=== PATIENT | female | born 1990 | race Caucasian/White ===

== ENCOUNTER 2017-04-08 14:46 | Observation (INO) | payer MEDICAID, SELFPAY ==
[2017-04-08] VITALS (7 sets, daily range): BP systolic 108–135; BP diastolic 57–75; PULSE 63–79; RESP 16–18; TEMP 36.8; O2SAT 98–99; BMI 24.8
--- NOTE | 2017-04-08 15:54 | PCM.HP.STD ---
Problem List (1) Acute asthma exacerbation Status: Suspected (2) Asthma Status: Chronic (3) Opioid dependence with withdrawal Status: Acute (4) ex-smoker Status: Acute History of Present Illness Date of Admission: 04/08/17 Chief Complaint: Opioid withdrawal symptoms The patient is a 26 year old F history of asthma, last exacerbation about 2 weeks ago which she was admitted in [facility] and quit smoking was brought in through [facility] program for stabilization of opioid withdrawal symptoms. She had last dose of fentanyl 0.1 gram today at 2 AM. She usually is mainly fentanyl through snorting 3 years. She had one time he snort heroin about 3 years ago for which she was admitted. She denies IV use of drugs. She also refuses cocaine, methamphetamine or benzodiazepine. She quit smoking about 3 weeks ago. Currently, she has shivering, tremors, muscle twitching and pain, loose bowel movement. She is not vomiting or abdominal pain. [] Past Medical History Past Medical History (Chronic Problems): Chronic Problems Asthma (Chronic) Allergies azithromycin [From Zithromax] Adverse Reaction (Verified 02/07/17 02:37) Abd cramps/diarrhea Home Medications: Ambulatory Orders Medication Instructions Recorded Albuterol Inhaler [Ventolin Hfa] 1 puff INHALATION Q4H PRN PRN 09/25/13 Cetirizine HCl [Zyrtec] 10 mg PO DAILY PRN 02/07/17 Montelukast [Singulair] 10 mg PO DAILY 02/07/17 Fluticasone Prop 250 mcg [Flovent 1 puff INHALATION BID 04/08/17 Diskus 250 mcg] Salmeterol [Serevent Diskus] 50 mcg IH BID 04/08/17 Surgical History: no surgical history Psychiatric History: No pertinent psych hx MANAGER BUSINESS 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 Denies: Chills, Fever, Weight Change HEENT: Denies: Head Aches, Sinus Congestion, Sinus Drainage Cardiovascular: Denies: Chest Pain, Palpitations Respiratory: Denies: Cough, Shortness of breath at rest, Sputum production Gastrointestinal: Denies: Abdominal Pain, Nausea, Vomiting Genitourinary: Denies: Dysuria Musculoskeletal: Reports: Joint Pain, Muscle pain. Denies: Joint Tenderness Skin: Denies: Rash, Wounds Neurological: Denies: Numbness, Tingling, Focal weakness Psychiatric: Denies: Anxiety, Depression, Homicidal Ideations, Suicidal Ideations Hematologic/ Lymphatic: Denies: Easy Bruising, Easy Bleeding VTE Information - Inpt Only VTE Present on Admission: No VTE Mechan Device Prophylaxis: None VTE Pharm Prophylaxis ordered?: No Reason prophylaxis not ordered:: Procedure Not Indicated - Low risk Patient Problems: Active and Suspected Problems Opioid dependence with withdrawal (Acute) ex-smoker (Acute) - Physical Exam General: Alert, Oriented x3, Cooperative HEENT: Atraumatic, PERRLA, EOMI, Normocephalic Neck: Supple, No JVD, Negative Carotid Bruits Lungs: Clear to auscultation, Normal air movement, No rhonchi, No wheeze, No rales Cardiovascular: Regular rate, Regular Rhythm, Normal S1, Normal S2, No murmurs Abdomen: Bowel Sounds Present, Soft, Non Tender, Non-Distended Extremities: No edema, Capillary Refill Less than 3 Seconds Skin: No rashes, No breakdown Musculoskeletal: No Tenderness to Palpation of Joints or Extremities Neurological: Cranial nerves II-XII grossly intact Psych/Mental Status: Normal Affect, Appropriate Vital Signs Temp Pulse Resp BP Pulse Ox 98.2 F 75 18 126/75 98 04/08/17 15:53 04/08/17 15:53 04/08/17 15:53 04/08/17 15:53 04/08/17 15:53 Oxygen Delivery Method Room Air Weight: 65.635 kg Body Mass Index (BMI) 24.8 Assessment/Plan Active and Suspected Problems Opioid dependence with withdrawal (Acute) ex-smoker (Acute) The patient is a 26 year old F history of asthma, last exacerbation about 2 weeks ago which she was admitted in [facility] and quit smoking was brought in through [facility] program for stabilization of opioid withdrawal symptoms. She had last dose of fentanyl 0.1 gram today at 2 AM. She usually is mainly fentanyl through snorting 3 years. She had one time he snort heroin about 3 years ago for which she was admitted. She denies IV use of drugs. She also refuses cocaine, methamphetamine or benzodiazepine. She quit smoking about 3 weeks ago. Currently, she has shivering, tremors, muscle twitching and pain, loose bowel movement. She is not vomiting or abdominal pain. 1. Medical stabilization of acute opioid withdrawal mainly fentanyl: The patient is being admitted as per the [facility] protocol for medical stabilization of opioids. On the medication regimen as per the order set. Labs and EKG ordered. 2. Moderate intermittent asthma with last exacerbation about 3 weeks ago: Currently, she is not short of breath or wheezing and does not seem to exacerbation. Continue home inhalers Flovent, Salmetrol and albuterol as needed shortness of breath DVT prophylaxis, low risk: does not require prophylaxis
--- NOTE | 2017-04-08 16:04 | HP.PCM_ITS ---
Problem List (1) Acute asthma exacerbation Status: Suspected (2) Asthma Status: Chronic (3) Opioid dependence with withdrawal Status: Acute (4) ex-smoker Status: Acute History of Present Illness Date of Admission: 04/08/17 Chief Complaint: Opioid withdrawal symptoms The patient is a 26 year old F history of asthma, last exacerbation about 2 weeks ago which she was admitted in [place] and quit smoking was brought in through [facility] program for stabilization of opioid withdrawal symptoms. She had last dose of fentanyl 0.1 gram today at 2 AM. She usually is mainly fentanyl through snorting 3 years. She had one time he snort heroin about 3 years ago for which she was admitted. She denies IV use of drugs. She also refuses cocaine, methamphetamine or benzodiazepine. She quit smoking about 3 weeks ago. Currently, she has shivering, tremors, muscle twitching and pain, loose bowel movement. She is not vomiting or abdominal pain. [] Past Medical History Past Medical History (Chronic Problems): Chronic Problems Asthma (Chronic) Allergies azithromycin [From Zithromax] Adverse Reaction (Verified 02/07/17 02:37) Abd cramps/diarrhea Home Medications: Ambulatory Orders Medication Instructions Recorded Albuterol Inhaler [Ventolin Hfa] 1 puff INHALATION Q4H PRN PRN 09/25/13 Cetirizine HCl [Zyrtec] 10 mg PO DAILY PRN 02/07/17 Montelukast [Singulair] 10 mg PO DAILY 02/07/17 Fluticasone Prop 250 mcg [Flovent 1 puff INHALATION BID 04/08/17 Diskus 250 mcg] Salmeterol [Serevent Diskus] 50 mcg IH BID 04/08/17 Surgical History: no surgical history Psychiatric History: No pertinent psych hx 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 Denies: Chills, Fever, Weight Change HEENT: Denies: Head Aches, Sinus Congestion, Sinus Drainage Cardiovascular: Denies: Chest Pain, Palpitations Respiratory: Denies: Cough, Shortness of breath at rest, Sputum production Gastrointestinal: Denies: Abdominal Pain, Nausea, Vomiting Genitourinary: Denies: Dysuria Musculoskeletal: Reports: Joint Pain, Muscle pain. Denies: Joint Tenderness Skin: Denies: Rash, Wounds Neurological: Denies: Numbness, Tingling, Focal weakness Psychiatric: Denies: Anxiety, Depression, Homicidal Ideations, Suicidal Ideations Hematologic/ Lymphatic: Denies: Easy Bruising, Easy Bleeding VTE Information - Inpt Only VTE Present on Admission: No VTE Mechan Device Prophylaxis: None VTE Pharm Prophylaxis ordered?: No Reason prophylaxis not ordered:: Procedure Not Indicated - Low risk Patient Problems: Active and Suspected Problems Opioid dependence with withdrawal (Acute) ex-smoker (Acute) - Physical Exam General: Alert, Oriented x3, Cooperative HEENT: Atraumatic, PERRLA, EOMI, Normocephalic Neck: Supple, No JVD, Negative Carotid Bruits Lungs: Clear to auscultation, Normal air movement, No rhonchi, No wheeze, No rales Cardiovascular: Regular rate, Regular Rhythm, Normal S1, Normal S2, No murmurs Abdomen: Bowel Sounds Present, Soft, Non Tender, Non-Distended Extremities: No edema, Capillary Refill Less than 3 Seconds Skin: No rashes, No breakdown Musculoskeletal: No Tenderness to Palpation of Joints or Extremities Neurological: Cranial nerves II-XII grossly intact Psych/Mental Status: Normal Affect, Appropriate Vital Signs Temp Pulse Resp BP Pulse Ox 98.2 F 75 18 126/75 98 04/08/17 15:53 04/08/17 15:53 04/08/17 15:53 04/08/17 15:53 04/08/17 15:53 Oxygen Delivery Method Room Air Weight: 65.635 kg Body Mass Index (BMI) 24.8 Assessment/Plan Active and Suspected Problems Opioid dependence with withdrawal (Acute) ex-smoker (Acute) The patient is a 26 year old F history of asthma, last exacerbation about 2 weeks ago which she was admitted in [place] and quit smoking was brought in through [facility] program for stabilization of opioid withdrawal symptoms. She had last dose of fentanyl 0.1 gram today at 2 AM. She usually is mainly fentanyl through snorting 3 years. She had one time he snort heroin about 3 years ago for which she was admitted. She denies IV use of drugs. She also refuses cocaine, methamphetamine or benzodiazepine. She quit smoking about 3 weeks ago. Currently, she has shivering, tremors, muscle twitching and pain, loose bowel movement. She is not vomiting or abdominal pain. 1. Medical stabilization of acute opioid withdrawal mainly fentanyl: The patient is being admitted as per the [facility] protocol for medical stabilization of opioids. On the medication regimen as per the order set. Labs and EKG ordered. 2. Moderate intermittent asthma with last exacerbation about 3 weeks ago: Currently, she is not short of breath or wheezing and does not seem to exacerbation. Continue home inhalers Flovent, Salmetrol and albuterol as needed shortness of breath DVT prophylaxis, low risk: does not require prophylaxis
[2017-04-08 16:50] LABS: Absolute Lymphocyte Count 0.99 X10^3/ul (0.83-4.51); Absolute Neutrophil Count 4.2 X10^3/uL (2.0-7.7); Basophil# 0.04 X10^3/uL; Basophil% 0.6 % (0-1); Eosinophil# 0.59 X10^3/uL; Eosinophils% 9.4 % (0-5); Hematocrit 36.8 % (37-47); Hemoglobin 12.7 g/dl (12.0-15.0); Lymphocyte # 0.99 X10^3/ul (4.0); Lymphocyte % 15.7 % (19-41); Mean Corp Hgb Conc 34.5 g/gl (32-36); Mean Corpuscular Hgb 30.5 pg (27.0-32.0); Mean Corpuscular Volume 88.5 fL (81-99); Mean Platelet Vol. 9.8 fl (6.2-12.0); Monocyte# 0.44 X10^3/uL; Neutrophil # 4.23 X10^3/uL (2.7-7.7); Neutrophil % 67.3 % (47-70); POSITIVE COUNT NO; POSITIVE DIFFERENTIAL NO; POSITIVE MORPHOLOGY NO; Platelet Count 296 K/mm3 (150-450); RBC Distribution Width CV 13.1 % (11.6-14.6); RBC Distribution Width SD 39.8 fl (35.1-43.9); Red Blood Count 4.16 M/mm3 (4.2-5.4); White Blood Count 6.3 K/mm3 (4.4-11.0)
[2017-04-08] MEDS: Buprenorphine HCl 2 MG TAB.SUBL SL (16:52)
[2017-04-08] MEDS: chlordiazePOXIDE 25 MG Capsule PO ×2 (16:52→22:00)
[2017-04-08] MEDS: cloNIDine HCl 0.1 MG Tablet 0.2 MG PO (16:53)
[2017-04-08 16:56] LABS: International Normalized Ratio 1.1; Prothrombin Time (Protime)PT. 13.3 SECONDS (11.7-14.9)
[2017-04-08] MEDS: Ibuprofen 400 MG Tablet 800 MG PO (16:59)
[2017-04-08] MEDS: Ondansetron ODT 4 MG Tablet PO ×2 (16:59→23:01)
[2017-04-08] MEDS: Methocarbamol 750 MG Tablet PO ×2 (16:59→23:01)
[2017-04-08 17:05] LABS: ALB/GLOB Ratio 1.2 RATIO (0.9-2.4); AST(SGOT) 7 U/L (15-37); Alanine Aminotransfer ALT/SGPT 8 U/L (12-78); Albumin, Serum 3.7 g/dL (3.4-5.0); Alkaline Phosphatase 52 U/L (45-117); Amylase 35 U/L (25-115); Anion Gap 8 (5-15); BUN 6 mg/dL (7-18); BUN/Creat Ratio 9.9 RATIO (10-20); Calcium,Total 8.5 mg/dL (8.5-10.1); Chloride 108 mmol/L (98-107); EST Glomerular Filtration Rate 127 mL/min (>60); Est Glom Filt Rate - Afr Amer 153 mL/min (>60); Glucose 93 mg/dL (70-110); Lipase 114 U/L (73-393); Potassium 3.6 mmol/L (3.5-5.1); Protein, Total 6.7 g/dL (6.4-8.2); Sodium Level 143 mmol/L (136-145)
[2017-04-08 17:10] LABS: Alcohol, Blood (Medical)-Serum < 3.0 mg/dL
[2017-04-08 17:33] LABS: Pregnancy, Serum, hCG Quali. NEGATIVE Negative (0-9 Nonpreg)
[2017-04-08 18:00] LABS: Amphetamine Urine VISTA NEGATIVE (<1000 ng/mL); Barbiturate Urine VISTA POSITIVE (< 200 ng/mL); Benzodiazepine Urine VISTA NEGATIVE (< 200 ng/mL); Cocaine Urine VISTA NEGATIVE (< 300 ng/mL); Ecstacy Urine VISTA NEGATIVE (< 500 ng/mL); Methadone Urine VISTA NEGATIVE (< 300 ng/mL); PCP Urine VISTA NEGATIVE (< 25 ng/mL); THC Urine VISTA NEGATIVE (< 50 ng/mL); Vista UDS pH Range 6
[2017-04-08 21:09] LABS: Bacteria 0 SEEN /hpf (None Seen); Mucous, Urine 0 SEEN /hpf (<or=2+); Red Blood Cells-Urine 0 SEEN /hpf (0-5); White Blood Cells 0 SEEN /hpf (0-5)
[2017-04-08 21:11] LABS: Color, Urine Yellow (Yellow); Glucose, Dipstick Normal (Normal); Ketone-Dipstick Negative (Negative); Leukocyte Esterase-Dipstick Negative /ul (Negative); Nitrite-Dipstick Negative (Negative); Occult Blood-Urine Negative /ul (Negative); Protein-Dipstick Negative (Negative); Urine Bilirubin Dipstick Negative (Negative); Urine Clarity Sl. Cloudy (Clear); Urine Urobilinogen Normal (Normal)
[2017-04-08 21:17] LABS: Amorphous Sediment 1+ PHOS; Squamous Epithelial Cells - UA 5-10 SEEN /hpf (5-10)
[2017-04-08] MEDS: traZODone 50 MG Tablet PO (22:06)
[2017-04-08] MEDS: Carbidopa/Levodopa 25/100 Tablet PO (22:06)
[2017-04-08] MEDS: Acetaminophen 325 MG Tablet 650 MG PO (22:06)
[2017-04-08] MEDS: Dicyclomine 10 MG Capsule 20 MG PO (22:06)
[2017-04-08] MEDS: QUEtiapine 25 MG Tablet PO (22:06)
[2017-04-08] MEDS: Albuterol 2.5 MG/3 ML VIAL.NEB. INHALATION (22:10)
[2017-04-09] VITALS (10 sets, daily range): BP systolic 91–112; BP diastolic 42–60; PULSE 66–88; RESP 16–18; TEMP 36.4–37.2; O2SAT 97–100
[2017-04-09] MEDS: Buprenorphine HCl 2 MG TAB.SUBL SL ×3 (00:53→17:50)
[2017-04-09] MEDS: Ibuprofen 400 MG Tablet 800 MG PO ×2 (00:56→21:35)
[2017-04-09] MEDS: chlordiazePOXIDE 25 MG Capsule PO ×5 (02:05→21:36)
[2017-04-09] MEDS: Ondansetron ODT 4 MG Tablet PO ×3 (05:41→21:35)
[2017-04-09] MEDS: Methocarbamol 750 MG Tablet PO ×3 (05:41→17:51)
[2017-04-09] MEDS: QUEtiapine 25 MG Tablet PO (05:41)
--- NOTE | 2017-04-09 07:14 | PCM.PN.HOSP ---
Patient Problems: Active and Suspected Problems Opioid dependence with withdrawal (Acute) ex-smoker (Acute) Subjective: Patient with no acute events overnight per self and per nursing report. She states withdrawal symptoms have markedly improved and she slept well. We will to having hepatitis and HIV panel obtained. Patient denies fevers, chills, nausea, emesis, abdominal pain, chest pain or dyspnea. Objective: Physical Examination: General: awake, alert, oriented x 3 and cooperative, seated upright in bed in no apparent distress. Skin: normal color, turgor, no icterus, cyanosis. HEENT: AT/NC, EOMI, PERRLA, MMM. Lungs: CTA bilaterally, moderate effort, mild decrease BL bases, no rales, ronchi or wheezing. Heart: Regular rate and rhythm; no gallop, rub audible. Abdomen: soft, NTTP, ND, normal BS. Extremities: no cyanosis, clubbing, or edema. Neurological: patient awake, alert, oriented x 3; cognitive function intact; pupils equally reactive to light and accomodation; cranial nerves II-XII grossly normal, moving all 4 extremities, no focal deficits, strength mildly globally decreased. Psychiatric: affect appears normal, no acute evidence of depressive or anxiety feelings. Vitals/I&O's: Vital Signs Temp Pulse Resp BP Pulse Ox 98.6 F 73 18 101/48 99 04/09/17 05:35 04/09/17 05:35 04/09/17 05:35 04/09/17 05:35 04/08/17 22:10 Oxygen Delivery Method Room Air Weight: 144 lb 11.2 oz Body Mass Index (BMI) 24.8 Intake and Output for Last 24 Hours 04/07/17 04/08/17 04/09/17 23:59 23:59 23:59 Intake Total 820 Balance 820 Laboratory Results 04/08/17 16:37: WBC 6.3, RBC 4.16 L, Hgb 12.7, Hct 36.8 L, MCV 88.5, MCH 30.5, MCHC 34.5, RDW 13.1, RDW Differential 39.8, Plt Count 296, MPV 9.8, Immature Gran % (Auto) 0.000, Neut % (Auto) 67.3, Lymph % (Auto) 15.7 L, [place] % (Auto) 7.0, Eos % (Auto) 9.4 H, Baso % (Auto) 0.6, Absolute Neuts (auto) 4.2, Absolute Lymphs (auto) 0.99, Total Counted Not Reportable 04/08/17 16:37: PT 13.3, INR 1.1 04/08/17 16:37: Sodium 143, Potassium 3.6, Chloride 108 H, Carbon Dioxide 27.0, Anion Gap 8, BUN 6 L, Creatinine 0.60, Estim Creat Clear Calc 122.70, Est GFR (MDRD) Af Amer 153, Est GFR (MDRD) Non-Af 127, BUN/Creatinine Ratio 9.9 L, Glucose 93, Calcium 8.5, Total Bilirubin 0.30, AST 7 L, ALT 8 L, Alkaline Phosphatase 52, Total Protein 6.7, Albumin 3.7, Globulin 3.0, Albumin/Globulin Ratio 1.2, Amylase 35, Lipase 114 04/08/17 16:37: Ethyl Alcohol < 3.0 04/08/17 16:37: Serum , Qual NEGATIVE 04/08/17 17:10: Urine Opiates Screen POSITIVE H, Urine Methadone Screen NEGATIVE, Ur Barbiturates Screen POSITIVE H, Ur Phencyclidine Scrn NEGATIVE, Ur Amphetamines Screen NEGATIVE, U Methamphetamin-MDMA NEGATIVE, U Benzodiazepines Scrn NEGATIVE, Urine Cocaine Screen NEGATIVE, U Cannabinoids Screen NEGATIVE, Ur Drug Screen Comment 04/08/17 17:10: Urine Color Yellow, Urine Clarity Sl. Cloudy, Urine pH 8.0, Ur Specific [place] 1.010, Urine Protein Negative, Urine Glucose (UA) Normal, Urine Ketones Negative, Urine Occult Blood Negative, Urine Nitrite Negative, Urine Bilirubin Negative, Urine Urobilinogen Normal, Ur Leukocyte Esterase Negative, Urine RBC 0 SEEN, Urine WBC 0 SEEN, Ur Squamous Epith Cells 5-10 SEEN, Amorphous Sediment 1+ PHOS, Urine Bacteria 0 SEEN, Urine Mucus 0 SEEN Current Medications Acetaminophen (Tylenol) 650 mg PO Q4H PRN PRN PRN Reason: Temp>99.1F Last Admin: 04/08/17 22:06 Dose: 650 mg Al Hydroxide/Mg Hydroxide (Mylanta Ii) 30 ml PO Q6H PRN PRN PRN Reason: dyspesia Albuterol Sulfate (Ventolin Aerosols) 2.5 mg INHALATION Q4H PRN PRN Reason: Wheezing Last Admin: 04/08/17 22:10 Dose: 2.5 mg Albuterol Sulfate (Ventolin Aerosols) 2.5 mg INHALATION Q6HWA.RT [facility] Last Admin: 04/08/17 19:10 Dose: Not Given Bisacodyl (Dulcolax) 10 mg RECTAL DAILY PRN PRN Reason: Constipation Budesonide (Pulmicort Aerosol) 0.5 mg INHALATION Q12H.RT [facility] Last Admin: 04/08/17 19:10 Dose: Not Given Buprenorphine HCl (Buprenorphine Hcl) 4 mg SL Q8H BRENDAN PRN Reason: Taper Stop: 04/11/17 20:44 Last Admin: 04/09/17 00:53 Dose: 4 mg Carbidopa/Levodopa (Sinemet) 1 tablet PO Q8H PRN PRN PRN Reason: RESTLESSNESS Last Admin: 04/08/17 22:06 Dose: 1 tablet Chlordiazepoxide (Librium) 25 mg PO Q6H PRN PRN PRN Reason: Mod-Sev Anxiety (score 2-3/3) Chlordiazepoxide (Librium) 25 mg PO Q4 [facility] Stop: 04/09/17 14:01 Last Admin: 04/09/17 05:36 Dose: 25 mg Clonidine (Catapres) 0.1 mg PO Q2H PRN PRN Reason: Hot/Cold Sweats or Anxiety Dicyclomine HCl (Bentyl) 20 mg PO Q6H PRN PRN PRN Reason: Abdomnial Discomfort Last Admin: 04/08/17 22:06 Dose: 20 mg Folic Acid (Folic Acid) 1 mg PO DAILY@0800 [facility] Hydroxyzine Pamoate (Vistaril) 50 mg PO Q6H PRN PRN PRN Reason: Mild Anxiety (score 1/3) Last Admin: 04/09/17 00:56 Dose: 50 mg Ibuprofen (Motrin) 800 mg PO Q8H PRN PRN PRN Reason: Mild-Moderate Pain (1-5/10) Last Admin: 04/09/17 00:56 Dose: 800 mg Influenza Virus Vaccine Quadrival (Fluarix/Fluzone) 0.5 ml IM .ONCE ONE Stop: 04/09/17 10:01 Loperamide HCl (Imodium) 2 - 4 mg PO UD PRN PRN Reason: LOOSE STOOLS Methocarbamol (Methocarbamol) 750 mg PO 4X/DAY PRN PRN Reason: Muscle Aches Last Admin: 04/09/17 05:41 Dose: 750 mg Montelukast Sodium (Singulair) 10 mg PO DAILY [facility] Multivitamins/Minerals ([facility]ivitamin With Minerals) [facility] Nicotine (Nicoderm Cq (Pbkc)) 21 mg TRANSDERM. DAILY [facility] Ondansetron HCl (Zofran Odt) 4 mg PO Q6H PRN PRN PRN Reason: NAUSEA Last Admin: 04/09/17 05:41 Dose: 4 mg Quetiapine Fumarate (Seroquel) 25 mg PO Q6H PRN PRN PRN Reason: Moderate Anxiety (score 2/3) Last Admin: 04/09/17 05:41 Dose: 25 mg Senna (Senokot) 1 tablet PO QHS PRN PRN Reason: Constipation Thiamine HCl ([facility]itamin B1) [facility] Trazodone HCl (Desyrel) 50 mg PO QHS [facility] Last Admin: 04/08/17 22:06 Dose: 50 mg Assessment/Plan Active and Suspected Problems Opioid dependence with withdrawal (Acute) ex-smoker (Acute) The patient is a 26 y/o F w/ PMHx: Tobacco use (Q 3 weeks prior), Asthma, History of Fentanyl abuse w/ noted history of snorting fentanyl in addition to heroine snorting in the past (3 years prior) with denial of IVDA who presents to the [facility] on 04/08/17 w/ noted opiate withdrawal onset starting late morning following last dose 0.1 gm 2 am on day of presentation with abdominal pain/cramping, generalized body aches and pains, rhinorrhea, piloerection, fatigue, restless leg, sweating, yawning. (1) Acute Opiate Withdrawal: Admitted to [facility], routine labs obtained, negative , UDS w/ + opitates, + barbiturates, EtOH unremarkable. Initiated and continued on [facility] protocol with tapering course of Subutex, as needed Seroquel, Librium, Sinemet, Catapres, Bentyl, Vistaril, IV fluids, IV antiemetics, Tylenol as needed for pain. Once patient clinically improved and completion of taper nearing will plan [facility] assistance for transition to next level of rehabilitation care. (2) Polysubstance Abuse, Denied IVDA: Given ongoing polysubstance abuse despite denial of IVDA, likely not making excellent safety choices, thus will obtain hepatitis panel and HIV. If positive for hepatitis C, would not be current treatment candidate until clean, sober x 6 months, documented attendance NA or AA meetings, counseling and ongoing negative drug screens. (3) Tobacco Abuse: Encouraged continued cessation, inpatient consultation per RT, NR if desired. (4) Asthma: Encourage continued tobacco cessation, HOB, IS, albuterol PRN, budesonide. (5) DVT Prophylaxis: CATHY, low risk, ambulation.
[2017-04-09] MEDS: Folic Acid 1 MG Tablet PO (08:50)
[2017-04-09] MEDS: Multivitamins,Ther W-Minerals Tablet 1 TABLET PO (08:50)
[2017-04-09] MEDS: Thiamine Hydrochloride 100 MG Tablet PO (08:50)
[2017-04-09] MEDS: Carbidopa/Levodopa 25/100 Tablet PO ×2 (08:57→17:50)
[2017-04-09] MEDS: Montelukast 10 MG Tablet PO (10:11)
[2017-04-09] MEDS: Albuterol 2.5 MG/3 ML VIAL.NEB. INHALATION (19:16)
[2017-04-09] MEDS: Budesonide Respules 0.5 MG/2 ML AMPUL.NEB. INHALATION (19:17)
[2017-04-09] MEDS: traZODone 50 MG Tablet PO (21:30)
[2017-04-10] VITALS (7 sets, daily range): BP systolic 94–107; BP diastolic 50–58; PULSE 69–81; RESP 14–18; TEMP 36.8–37.1; O2SAT 99–100
[2017-04-10] MEDS: QUEtiapine 25 MG Tablet PO ×2 (00:33→21:04)
[2017-04-10] MEDS: Methocarbamol 750 MG Tablet PO ×3 (00:33→18:22)
[2017-04-10] MEDS: Buprenorphine HCl 2 MG TAB.SUBL SL ×3 (00:33→21:04)
[2017-04-10 04:16] LABS: HEPATITIS B SURFACE AG Negative (Negative); Hepatitis A AB, Total Negative (Negative); Hepatitis A IgM Antibody Negative (Negative); Hepatitis B Core AB IgM Negative (Negative); Hepatitis B Core Ab Total Negative (Negative); Hepatitis C Ab 0.1 s/co ratio (0.0-0.9)
[2017-04-10] MEDS: chlordiazePOXIDE 25 MG Capsule PO ×3 (04:59→18:22)
--- NOTE | 2017-04-10 07:42 | PCM.PN.HOSP ---
Patient Problems: Active and Suspected Problems Opioid dependence with withdrawal (Acute) ex-smoker (Acute) Subjective: Patient with no acute events overnight per self and per nursing report. She notes she slept well and her withdrawal symptoms are completely controlled and at this time she states resolved. Patient denies fevers, chills, nausea, emesis, abdominal pain, chest pain or dyspnea. Objective: Physical Examination: General: awake, alert, oriented x 3 and cooperative, seated upright in bed, just waking up and fatigued appearance. Skin: normal color, turgor, no icterus, cyanosis. HEENT: AT/NC, EOMI, PERRLA, MMM. Lungs: CTA bilaterally, moderate effort, occasional soft anterior inspiratory wheeze, minimal, no rales, ronchi. Heart: Regular rate and rhythm; no gallop, rub audible. Abdomen: soft, NTTP, ND, normal BS. Extremities: no cyanosis, clubbing, or edema. Neurological: patient awake, alert, oriented x 3; cognitive function intact; pupils equally reactive to light and accomodation; cranial nerves II-XII grossly normal, moving all 4 extremities, no focal deficits, strength preserved. Psychiatric: affect appears normal, no acute evidence of depressive or anxiety feelings. Vitals/I&O's: Vital Signs Temp Pulse Resp BP Pulse Ox 98.5 F 74 18 106/50 100 04/10/17 04:55 04/10/17 04:55 04/10/17 04:55 04/10/17 04:55 04/09/17 21:36 Oxygen Delivery Method Room Air Weight: 144 lb 11.2 oz Body Mass Index (BMI) 24.8 Intake and Output for Last 24 Hours 04/08/17 04/09/17 04/10/17 23:59 23:59 23:59 Intake Total 1300 960 Balance 1300 960 Laboratory Results 04/09/17 08:48: Hepatitis A IgM Ab Pending, Hepatitis A Ab Total Pending, Hep Bs Antigen Pending, Hep B Core Total Ab Pending, Hep B Core IgM Ab Pending, Hepatitis C Comment Pending, HIV 1&2 Ag/Ab, 4th Gen Pending Current Medications Acetaminophen (Tylenol) 650 mg PO Q4H PRN PRN PRN Reason: Temp>99.1F Last Admin: 04/08/17 22:06 Dose: 650 mg Al Hydroxide/Mg Hydroxide (Mylanta Ii) 30 ml PO Q6H PRN PRN PRN Reason: dyspesia Albuterol Sulfate (Ventolin Aerosols) 2.5 mg INHALATION Q4H PRN PRN Reason: Wheezing Last Admin: 04/08/17 22:10 Dose: 2.5 mg Albuterol Sulfate (Ventolin Aerosols) 2.5 mg INHALATION Q6HWA.RT [facility] Last Admin: 04/09/17 19:16 Dose: 2.5 mg Bisacodyl (Dulcolax) 10 mg RECTAL DAILY PRN PRN Reason: Constipation Budesonide (Pulmicort Aerosol) 0.5 mg INHALATION Q12H.RT [facility] Last Admin: 04/09/17 19:17 Dose: 0.5 mg Buprenorphine HCl (Buprenorphine Hcl) 2 mg SL Q8H BRENDAN PRN Reason: Taper Stop: 04/11/17 20:44 Last Admin: 04/10/17 00:33 Dose: 2 mg Carbidopa/Levodopa (Sinemet) 1 tablet PO Q8H PRN PRN PRN Reason: RESTLESSNESS Last Admin: 04/09/17 17:50 Dose: 1 tablet Chlordiazepoxide (Librium) 25 mg PO Q6H PRN PRN PRN Reason: Mod-Sev Anxiety (score 2-3/3) Last Admin: 04/10/17 04:59 Dose: 25 mg Clonidine (Catapres) 0.1 mg PO Q2H PRN PRN Reason: Hot/Cold Sweats or Anxiety Dicyclomine HCl (Bentyl) 20 mg PO Q6H PRN PRN PRN Reason: Abdomnial Discomfort Last Admin: 04/08/17 22:06 Dose: 20 mg Folic Acid (Folic Acid) 1 mg PO DAILY@0800 [facility] Last Admin: 04/09/17 08:50 Dose: 1 mg Hydroxyzine Pamoate (Vistaril) 50 mg PO Q6H PRN PRN PRN Reason: Mild Anxiety (score 1/3) Last Admin: 04/09/17 13:33 Dose: 50 mg Ibuprofen (Motrin) 800 mg PO Q8H PRN PRN PRN Reason: Mild-Moderate Pain (1-5/10) Last Admin: 04/09/17 21:35 Dose: 800 mg Loperamide HCl (Imodium) 2 - 4 mg PO UD PRN PRN Reason: LOOSE STOOLS Methocarbamol (Methocarbamol) 750 mg PO 4X/DAY PRN PRN Reason: Muscle Aches Last Admin: 04/10/17 00:33 Dose: 750 mg Montelukast Sodium (Singulair) 10 mg PO DAILY [facility] Last Admin: 04/09/17 10:11 Dose: 10 mg Multivitamins/Minerals ([facility] With Minerals) [facility] Last Admin: 04/09/17 08:50 Dose: 1 tablet Nicotine (Nicoderm Cq (Pbkc)) 21 mg TRANSDERM. DAILY [facility] Last Admin: 04/09/17 10:16 Dose: Not Given Ondansetron HCl (Zofran Odt) 4 mg PO Q6H PRN PRN PRN Reason: NAUSEA Last Admin: 04/09/17 21:35 Dose: 4 mg Quetiapine Fumarate (Seroquel) 25 mg PO Q6H PRN PRN PRN Reason: Moderate Anxiety (score 2/3) Last Admin: 04/10/17 00:33 Dose: 25 mg Senna (Senokot) 1 tablet PO QHS PRN PRN Reason: Constipation Thiamine [facility]amin B1) [facility] Last Admin: 04/09/17 08:50 Dose: 100 mg Trazodone HCl (Desyrel) 50 mg PO QHS [facility] Last Admin: 04/09/17 21:30 Dose: 50 mg Assessment/Plan Active and Suspected Problems Opioid dependence with withdrawal (Acute) ex-smoker (Acute) The patient is a 26 y/o F w/ PMHx: Tobacco use (Q 3 weeks prior), Asthma, History of Fentanyl abuse w/ noted history of snorting fentanyl in addition to heroine snorting in the past (3 years prior) with denial of IVDA who presents to the [facility] on 04/08/17 w/ noted opiate withdrawal onset starting late morning following last dose 0.1 gm 2 am on day of presentation with abdominal pain/cramping, generalized body aches and pains, rhinorrhea, piloerection, fatigue, restless leg, sweating, yawning. (1) Acute Opiate Withdrawal: Admitted to [place], routine labs obtained, negative , UDS w/ + opitates, + barbiturates, EtOH unremarkable. Initiated and continued on [facility] service protocol with tapering course of Subutex, as needed Seroquel, Librium, Sinemet, Catapres, Bentyl, Vistaril, IV fluids, IV antiemetics, Tylenol as needed for pain. Once patient clinically improved and completion of taper nearing will plan [facility] assistance for transition to next level of rehabilitation care. Plan for discharge to 04/11/17 following last tapering dosage. (2) Polysubstance Abuse, Denied IVDA: Given ongoing polysubstance abuse despite denial of IVDA, likely not making excellent safety choices, thus will obtain hepatitis panel and HIV. If positive for hepatitis C, would not be current treatment candidate until clean, sober x 6 months, documented attendance NA or AA meetings, counseling and ongoing negative drug screens. (3) Tobacco Abuse: Encouraged continued cessation, inpatient consultation per RT, NR if desired. (4) Asthma: Encourage continued tobacco cessation, HOB, IS, albuterol PRN, budesonide. Once discharged will encourage continued fluticasone, salmeterol. (5) DVT Prophylaxis: CATHY, low risk, ambulation.
[2017-04-10] MEDS: Ondansetron ODT 4 MG Tablet PO ×2 (07:50→16:24)
[2017-04-10] MEDS: Folic Acid 1 MG Tablet PO (07:50)
[2017-04-10] MEDS: Thiamine Hydrochloride 100 MG Tablet PO (07:50)
[2017-04-10] MEDS: Carbidopa/Levodopa 25/100 Tablet PO ×2 (07:50→16:20)
[2017-04-10] MEDS: Multivitamins,Ther W-Minerals Tablet 1 TABLET PO (07:50)
[2017-04-10] MEDS: Montelukast 10 MG Tablet PO (08:43)
--- NOTE | 2017-04-10 14:44 | CHAPLAIN ---
Type of Pastoral Visit _x__ Initial Visit ___ Follow-up Visit ___ On-call Visit ___ General Patient Visit ___ Spiritual Assessment ___ Family Conference ___ Bereavement ___ Rapid Response ___ Code Blue ___ Other (describe below) Pastoral Care Referral From _x__ Patient ___ Family ___ Nurse ___ Physician ___ Snowmobile Mechanic ___ Flume Tender ___ Other (describe below) Sacrament/Intervention _x__ Active listening ___ Anointing ___ Worship ___ Bereavement ___ Communion _x__ Little exploration ___ _x__ Life review _x__ Prayer ___ Reconciliation ___ Sacrament of Sick _x__ Supportive presence ___ Wedding ___ Other (describe below) Pastoral Comments introduced self and role to patient and pt welcomed me into room to talk; father of pt was in and out of the room and this coil former had opportunity to listen to him and be supportive as well; pt gives life story and her desire to out of the cycle of addiction; pt has attended a [facility] in [place] that she has found helpful to her and she hopes to return there when she [facility]
[2017-04-10 15:21] LABS: Hep B Surface Antibodies Non Reactive (.)
[2017-04-10 15:22] LABS: HIV 1/0/2 SCREEN 4TH GEN Non Reactive (Non Reactive)
[2017-04-10] MEDS: Budesonide Respules 0.5 MG/2 ML AMPUL.NEB. INHALATION (19:14)
[2017-04-10] MEDS: traZODone 50 MG Tablet PO (21:04)
[2017-04-11] MEDS: QUEtiapine 25 MG Tablet PO (06:30)
[2017-04-11] MEDS: chlordiazePOXIDE 25 MG Capsule PO (06:30)
[2017-04-11] MEDS: Methocarbamol 750 MG Tablet PO (06:30)
[2017-04-11] MEDS: Carbidopa/Levodopa 25/100 Tablet PO (06:30)
[2017-04-11 06:40] VITALS: BP 104/63; PULSE 74; RESP 16; TEMP 36.6
--- NOTE | 2017-04-11 07:04 | PCM.DC.SUM ---
Discharge Date and Diagnosis - Problem List Patient Problems: Active and Suspected Problems Opioid dependence with withdrawal (Acute) ex-smoker (Acute) Date of Admission: 04/08/17 Date of Discharge: 04/11/17 - Primary Discharge Diagnosis Active and Suspected Problems (1) Acute Opiate Withdrawal (2) Polysubstance Abuse, Denied IVDA (04/09/17 HIV and Hepatitis panel negative) (3) Tobacco Abuse (4) Asthma - Secondary Discharge Diagnosis Chronic Problems Asthma (Chronic) Hospital Course and Treatment Operations: None Procedures: None Summary of Care Provided: snorting in the past (3 years prior) with denial of IVDA who presented to the [facility] at [facility] on 04/08/17 w/ noted opiate withdrawal onset starting late morning following last dose 0.1 gm 2 am on day of presentation with abdominal pain/cramping, generalized body aches and pains, rhinorrhea, piloerection, fatigue, restless leg, sweating, yawning. Admitted to [place], routine labs obtained, negative , UDS w/ + opitates, + barbiturates, EtOH unremarkable. Initiated and continued on [facility] service protocol with tapering course of Subutex, as needed Seroquel, Librium, Sinemet, Catapres, Bentyl, Vistaril, IV fluids, IV antiemetics, Tylenol as needed for pain. Once patient clinically improved and completion of taper nearing transitioned w/ [facility] assistance to next level of rehabilitation care. Given ongoing polysubstance abuse despite denial of IVDA, hepatitis C and HIV obtained which were negative. Encouraged cigarette tobacco continued cessation w/ nicotine rx in case. Maintained on albuterol PRN, budesonide for her Asthma and transitioned back to her home regimen upon discharge. DAY OF DISCHARGE PROGRESS NOTE: Subjective: Patient without acute event overnight per self and nursing report. Symptoms completely resolved. Patient denies fever, chills, nausea, emesis, abdominal pain, chest pain or dyspnea. Patient agreeable to discharge to home w/ [facility] plan in place. Patient will be discharged with follow-up with primary care physician within 3-5 days. Objective: VS: T 98.7, heart rate 75, BP 105/50, respiratory rate 18, 100% on RA. Physical Examination: General: awake, alert, oriented x 3 and cooperative, seated upright in the bed, NAD. Skin: normal color, turgor, no icterus, cyanosis. HEENT: AT/NC, EOMI, PERRLA, MMM. Lungs: CTA bilaterally, moderate effort, mild decrease BL bases, no rales, ronchi or wheezing; Heart: Regular rate and rhythm; no gallop, rub audible. Abdomen: soft, NTTP, ND, normal BS. Extremities: no cyanosis, clubbing, or edema. Neurological: patient awake, alert, oriented x 3; cognitive function appears intact upon questioning,; pupils equally reactive to light and accomodation; cranial nerves II-XII grossly normal, moving all 4 extremities, strength appropriate. Psychiatric: affect appears normal, no acute evidence of depressive or anxiety feelings. Assessment and Plan: Please see hospital summary above. Home Medications: Medications to take at Discharge Albuterol Inhaler [Ventolin Hfa] 1 puff INHALATION Q4H PRN PRN 09/25/13 Cetirizine HCl [Zyrtec] 10 mg PO DAILY PRN 02/07/17 Montelukast [Singulair] 10 mg PO DAILY 02/07/17 Fluticasone Prop 250 mcg [Flovent Diskus 250 mcg] 1 puff INHALATION BID 04/08/17 Salmeterol [Serevent Diskus] 50 mcg IH BID 04/08/17 Nicotine [Nicoderm Cq] 21 mg TRANSDERM. DAILY #14 patch 04/11/17 Following Prescrptions Were Given to Patient: Nicotine [Nicoderm Cq] 21 mg TRANSDERM. DAILY #14 patch Primary Care Physician: Dylan Reeves DO [Primary Care Provider] - Disposition: Home Minutes spent on discharge:: 35 Patient Condition:: Fair Meaningful Use Info Meaningful Use Diagnoses (Choose all that apply): None applicable
--- NOTE | 2017-04-11 07:07 | DS.PCM_ITS ---
Discharge Date and Diagnosis - Problem List Patient Problems: Active and Suspected Problems Opioid dependence with withdrawal (Acute) ex-smoker (Acute) Date of Admission: 04/08/17 Date of Discharge: 04/11/17 - Primary Discharge Diagnosis Active and Suspected Problems (1) Acute Opiate Withdrawal (2) Polysubstance Abuse, Denied IVDA (04/09/17 HIV and Hepatitis panel negative) (3) Tobacco Abuse (4) Asthma - Secondary Discharge Diagnosis Chronic Problems Asthma (Chronic) Hospital Course and Treatment Operations: None Procedures: None Summary of Care Provided: snorting in the past (3 years prior) with denial of IVDA who presented to the [facility] at [facility] on 04/08/17 w/ noted opiate withdrawal onset starting late morning following last dose 0.1 gm 2 am on day of presentation with abdominal pain/cramping, generalized body aches and pains, rhinorrhea, piloerection, fatigue, restless leg, sweating, yawning. Admitted to [place], routine labs obtained, negative , UDS w/ + opitates, + barbiturates, EtOH unremarkable. Initiated and continued on [facility] service protocol with tapering course of Subutex, as needed Seroquel, Librium, Sinemet, Catapres, Bentyl, Vistaril, IV fluids, IV antiemetics, Tylenol as needed for pain. Once patient clinically improved and completion of taper nearing transitioned w/ [facility] assistance to next level of rehabilitation care. Given ongoing polysubstance abuse despite denial of IVDA, hepatitis C and HIV obtained which were negative. Encouraged cigarette tobacco continued cessation w/ nicotine rx in case. Maintained on albuterol PRN, budesonide for her Asthma and transitioned back to her home regimen upon discharge. DAY OF DISCHARGE PROGRESS NOTE: Subjective: Patient without acute event overnight per self and nursing report. Symptoms completely resolved. Patient denies fever, chills, nausea, emesis, abdominal pain, chest pain or dyspnea. Patient agreeable to discharge to home w / [facility] plan in place. Patient will be discharged with follow-up with primary care physician within 3-5 days. Objective: VS: T 98.7, heart rate 75, BP 105/50, respiratory rate 18, 100% on RA. Physical Examination: General: awake, alert, oriented x 3 and cooperative, seated upright in the bed, NAD. Skin: normal color, turgor, no icterus, cyanosis. HEENT: AT/NC, EOMI, PERRLA, MMM. Lungs: CTA bilaterally, moderate effort, mild decrease BL bases, no rales, ronchi or wheezing; Heart: Regular rate and rhythm; no gallop, rub audible. Abdomen: soft, NTTP, ND, normal BS. Extremities: no cyanosis, clubbing, or edema. Neurological: patient awake, alert, oriented x 3; cognitive function appears intact upon questioning,; pupils equally reactive to light and accomodation; cranial nerves II-XII grossly normal, moving all 4 extremities, strength appropriate. Psychiatric: affect appears normal, no acute evidence of depressive or anxiety feelings. Assessment and Plan: Please see hospital summary above. Home Medications: Medications to take at Discharge Albuterol Inhaler [Ventolin Hfa] 1 puff INHALATION Q4H PRN PRN 09/25/13 Cetirizine HCl [Zyrtec] 10 mg PO DAILY PRN 02/07/17 Montelukast [Singulair] 10 mg PO DAILY 02/07/17 Fluticasone Prop 250 mcg [Flovent Diskus 250 mcg] 1 puff INHALATION BID Salmeterol [Serevent Diskus] 50 mcg IH BID 04/08/17 Nicotine [Nicoderm Cq] 21 mg TRANSDERM. DAILY #14 patch 04/11/17 Following Prescrptions Were Given to Patient: Nicotine [Nicoderm Cq] 21 mg TRANSDERM. DAILY #14 patch Primary Care Physician: Dylan Reeves DO [Primary Care Provider] - Disposition: Home Minutes spent on discharge:: 35 Patient Condition:: Fair Meaningful Use Info Meaningful Use Diagnoses (Choose all that apply): None applicable
[2017-04-11] MEDS: Buprenorphine HCl 2 MG TAB.SUBL SL (10:08)
[2017-04-11] MEDS: Multivitamins,Ther W-Minerals Tablet 1 TABLET PO (10:09)
[2017-04-11] MEDS: Thiamine Hydrochloride 100 MG Tablet PO (10:09)
[2017-04-11] MEDS: Montelukast 10 MG Tablet PO (10:10)
[2017-04-11] MEDS: Folic Acid 1 MG Tablet PO (10:10)
--- NOTE | 2017-04-11 11:02 | PCM.DC ---
- Discharge Diagnoses Current Active Problems: Current Active and Chronic Problems Opioid dependence with withdrawal (Acute) ex-smoker (Acute) (1) Acute Opiate Withdrawal (2) Polysubstance Abuse, Denied IVDA (04/09/17 HIV and Hepatitis panel negative) (3) Tobacco Abuse (4) Asthma You will use the following diet at home:: No restrictions Your food should be the consistency of: Regular Your liquids should be the consistency of: Regular/Thin Discharge Activity: Return to Normal Activity May resume sexual activity in: No Restrictions - HIV and Hepatitis panel negative. Weight Bearing Status: Weight bearing as tolerated Call your doctor if you observe: Fever of 101 or Higher, Inability to urinate, Inability to have a bowel movement, Shortness of breath, Dizziness, Fainting spells, Chest pain, Uncontrolled pain Instructions: ED Narcotic Abuse, ED Withdrawal Narcotic Allergies/Adverse Reactions: Allergies azithromycin [From Zithromax] Adverse Reaction (Verified 02/07/17 02:37) Abd cramps/diarrhea Medications to take at Discharge Albuterol Inhaler [Ventolin Hfa] 1 puff INHALATION Q4H PRN PRN 09/25/13 Cetirizine HCl [Zyrtec] 10 mg PO DAILY PRN 02/07/17 Montelukast [Singulair] 10 mg PO DAILY 02/07/17 Fluticasone Prop 250 mcg [Flovent Diskus 250 mcg] 1 puff INHALATION BID 04/08/17 Salmeterol [Serevent Diskus] 50 mcg IH BID 04/08/17 Nicotine [Nicoderm Cq] 21 mg TRANSDERM. DAILY #14 patch 04/11/17 The following prescriptions were given: Nicotine [Nicoderm Cq] 21 mg TRANSDERM. DAILY #14 patch Primary Care Physician: Dylan Reeves DO [Primary Care Provider] - Please follow up with your Primary Care Physician in: Follow-up within 3-5 days to review admission. Please Follow Up With: [facility] When: Follow-up as arranged per [facility]. Proposed Discharge Date: 04/11/17
--- NOTE | 2017-04-11 11:34 | NURSING ---
Called Heather at [facility] and informed her that this patient was discharged and on her way.
== END 2017-04-11 11:23 | disposition home or self-care (01) | DRG 773 ==
LOC: MS2 08-31 09:20
PROVIDERS: Admitting Provider Internal Medicine; Family Provider Student in an Organized Health Care Education/Training Program; PCP Student in an Organized Health Care Education/Training Program; Visit Provider Family Medicine
DX: F11.23 Opioid dependence with withdrawal (principal); J45.20 Mild intermittent asthma, uncomplicated; F19.10 Other psychoactive substance abuse, uncomplicated; Z87.891 Personal history of nicotine dependence; Z79.899 Other long term (current) drug therapy; Z79.51 Long term (current) use of inhaled steroids; Z23 Encounter for immunization
CPT/HCPCS: 36415; 80053; 80307; 80320; 81001; 82150; 83690; 84703; 85025; 85610; 86703; 86704; 86705; 86706; 86708; 86709; 86803; 87340; 93005; 94640; 99218; 90686; G0378; G0379; G0480

== ENCOUNTER 2017-09-25 16:13 | Inpatient (IN) | payer MEDICAID, SELFPAY ==
--- NOTE | 2017-09-25 16:22 | EKG12_ITS ---
Test Reason : HX OF DRUG USE Blood Pressure : / mmHG Vent. Rate : 070 BPM Atrial Rate : 070 BPM P-R Int : 130 ms QRS Dur : 094 ms QT Int : 420 ms P-R-T Axes : 039 065 052 degrees QTc Int : 453 ms Normal sinus rhythm Normal ECG When compared with ECG of 08-APR-2017 16:39, No significant change was found Confirmed by GONZALO NANCE, RANI ([id number]), electronic news gathering editor ANDREZ LOCKE ([id number] on 10/06/2017 9:30:15 AM Referred By: Laine Jorgensen Confirmed By:RANI SÁNCHEZ MD
--- NOTE | 2017-09-25 16:25 | PCM.HP.STD ---
Problem List (1) Opioid dependence with withdrawal Status: Acute (2) Asthma Status: Chronic Qualifiers: Asthma severity: unspecified severity Asthma persistence: unspecified Asthma complication type: unspecified Qualified Code(s): J45.909 - Unspecified asthma, uncomplicated (3) Tobacco use Status: Chronic History of Present Illness Date of Admission: 09/25/17 Chief Complaint: Acute Opiate Withdrawal The patient is a 27 y/o F w/ PMHx: Asthma, Chronic Opiate Abuse (Heroine 1/2-1 gm daily snorted), Crack Cocaine (occasionally, last 09/24/17, snorted), Tobacco use (1 ppd) who presents to the [facility] at [facility] on 09/25/17 w/ noted opiate withdrawal onset starting early this afternoon following last dose 09/25/17 5 am with abdominal pain/cramping, generalized body aches and pains, rhinorrhea, piloerection, fatigue, restless leg, sweating, yawning. Patient interested in attaining clean status. She currently notes that she has not been using her inhalers secondary to need for a new PCP. She notes she has been unable to find someone in [place]. Initially declined aerosols here; however, following discussions and noted wheezing on examination decided to continue with aerosols. Encouraged PCP establishment. Past Medical History Past Medical History (Chronic Problems): Chronic Problems Tobacco use (Chronic) Asthma (Chronic) Allergies azithromycin [From Zithromax] Adverse Reaction (Verified 02/07/17 02:37) Abd cramps/diarrhea Home Medications: Ambulatory Orders Medication Instructions Recorded Albuterol Inhaler [Ventolin Hfa] 1 puff INHALATION Q4H PRN PRN 09/25/13 Surgical History: no surgical history Psychiatric History: No pertinent psych hx PRODUCT OWNER History: No pertinent PRODUCT OWNER history Lives: - - Notes that her father (does not use) is staying with her currently. Smoking Status: Current every day smoker - 1 ppd. Tobacco Use: Cigarettes Alcohol: None Drugs: Cocaine - Occasionally, snorted., Heroin - 1/2-1 gm daily snorted. - *Family History Maternal History Items: No pertinent history Paternal History Items: No pertinent history Review of Systems Constitutional: Reports: Anorexia, Chills, Malaise, Weakness, Fatigue. Denies: Fever, Weight Change HEENT: Reports: Hearing Changes, Nasal Congestion, Post Nasal Drip, Sinus Congestion, Sinus Drainage. Denies: Head Aches Cardiovascular: Denies: Chest Pain, Palpitations Respiratory: Reports: Shortness of breath upon exertion, Wheezing. Denies: Cough, Shortness of breath at rest, Sputum production Gastrointestinal: Reports: Abdominal Pain, Nausea. Denies: Vomiting Genitourinary: Denies: Dysuria Musculoskeletal: Denies: Joint Pain, Joint Tenderness Skin: Denies: Rash, Wounds Neurological: Denies: Numbness, Tingling, Focal weakness Psychiatric: Denies: Anxiety, Depression, Homicidal Ideations, Suicidal Ideations Hematologic/ Lymphatic: Denies: Easy Bruising, Easy Bleeding VTE Information - Inpt Only VTE Present on Admission: No VTE Mechan Device Prophylaxis: Knee High CATHY Hose VTE Pharm Prophylaxis ordered?: No Reason prophylaxis not ordered:: Treatment Not Indicated Subjective: Seated upright in the bed, notes feeling improved following 1st does subutex. Objective: Physical Examination: General: awake, alert, oriented x 3 and cooperative, seated upright in bed, notes much improved since initial subutex. Skin: normal color, turgor, no icterus, cyanosis. HEENT: AT/NC, EOMI, PERRLA, mildly dry MM, evident rhinorrhea, congested/nasally voice, no carotid bruits or JVD noted. Lungs: Diminished BS bases, inspiratory soft distant wheeze primarily CALLIE posterior lung field, moderate effort. Heart: Regular rate and rhythm; no gallop, rub audible. Abdomen: soft, NTTP, ND, normal BS, no HSM. Extremities: no cyanosis, clubbing, or edema. Neurological: patient awake, alert, oriented x 3; cognitive function intact; pupils equally reactive to light and accomodation; cranial nerves II-XII grossly normal, moving all 4 extremities, no focal deficits, strength mildly to moderately globally decreased secondary to acute presentation. Psychiatric: affect appears fatigued, no acute evidence of depressive or anxiety feelings. Assessment/Plan The patient is a 27 y/o F w/ PMHx: Asthma, Chronic Opiate Abuse (Heroine 1/2-1 gm daily snorted), Crack Cocaine (occasionally, last 09/24/17, snorted), Tobacco use (1 ppd) who presents to the [facility] at [facility] on 09/25/17 w/ noted opiate withdrawal. (1) Acute Opiate Withdrawal: Will admit to [place], obtain routine labs including CBC, CMP, urine for drug screen, urinalysis, serum lipase, routine EKG and will initiate and continue on [facility] service protocol with tapering course of Subutex, as needed Seroquel, Librium, Sinemet, Catapres, Bentyl, Vistaril, IV fluids, IV antiemetics, Tylenol as needed for pain. Once patient clinically improved and completion of taper nearing will plan [facility] assistance for transition to next level of rehabilitation care. (2) Polysubstance Abuse: Denies IVDA history; however, given polysubstance abuse will obtain HIV, hepatitis panel. Patient currently not candidate for hep C treatment currently as needs to be clean, sober x 6 months, documented attendance NA or AA meetings, counseling and ongoing negative drug screens. (3) Tobacco Abuse: Encouraged cessation, inpatient consultation per RT, NR if desired. (4) Chronic Asthma: ATC duonebs, PRN albuterol, HOB, IS parameters, continue allergy regimen. Encouraged PCP establishment and resumption of appropriate inhalers. Advised strongly tobacco cessation. (5) DVT Prophylaxis: TEDs, low risk, ambulation. Code Visit Inpatient E&M: 39568 Init Hosp L2
--- NOTE | 2017-09-25 16:30 | HP.PCM_ITS ---
Problem List (1) Opioid dependence with withdrawal Status: Acute (2) Asthma Status: Chronic Qualifiers: Asthma severity: unspecified severity Asthma persistence: unspecified Asthma complication type: unspecified Qualified Code(s): J45.909 - Unspecified asthma, uncomplicated (3) Tobacco use Status: Chronic History of Present Illness Date of Admission: 09/25/17 Chief Complaint: Acute Opiate Withdrawal The patient is a 27 y/o F w/ PMHx: Asthma, Chronic Opiate Abuse (Heroine 1/2-1 gm daily snorted), Crack Cocaine (occasionally, last 09/24/17, snorted), Tobacco use (1 ppd) who presents to the [facility] at [facility] on 09/25/17 w/ noted opiate withdrawal onset starting early this afternoon following last dose 5 am with abdominal pain/cramping, generalized body aches and pains, rhinorrhea, piloerection, fatigue, restless leg, sweating, yawning. Patient interested in attaining clean status. She currently notes that she has not been using her inhalers secondary to need for a new PCP. She notes she has been unable to find someone in [place]. Initially declined aerosols here; however, following discussions and noted wheezing on examination decided to continue with aerosols. Encouraged PCP establishment. 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 Smoking Status: Current every day smoker - 1 ppd. Tobacco Use: Cigarettes Alcohol: None Drugs: Cocaine - Occasionally, snorted., Heroin - 1/2-1 gm daily snorted. - *Family History Maternal History Items: No pertinent history Paternal History Items: No pertinent history Review of Systems Constitutional: Reports: Anorexia, Chills, Malaise, Weakness, Fatigue. Denies: Fever, Weight Change HEENT: Reports: Hearing Changes, Nasal Congestion, Post Nasal Drip, Sinus Congestion, Sinus Drainage. Denies: Head Aches Cardiovascular: Denies: Chest Pain, Palpitations Respiratory: Reports: Shortness of breath upon exertion, Wheezing. Denies: Cough, Shortness of breath at rest, Sputum production Gastrointestinal: Reports: Abdominal Pain, Nausea. Denies: Vomiting Genitourinary: Denies: Dysuria Musculoskeletal: Denies: Joint Pain, Joint Tenderness Skin: Denies: Rash, Wounds Neurological: Denies: Numbness, Tingling, Focal weakness Psychiatric: Denies: Anxiety, Depression, Homicidal Ideations, Suicidal Ideations Hematologic/ Lymphatic: Denies: Easy Bruising, Easy Bleeding VTE Information - Inpt Only VTE Present on Admission: No VTE Mechan Device Prophylaxis: Knee High CATHY Hose VTE Pharm Prophylaxis ordered?: No Reason prophylaxis not ordered:: Treatment Not Indicated Subjective: Seated upright in the bed, notes feeling improved following 1st does subutex. Objective: Physical Examination: General: awake, alert, oriented x 3 and cooperative, seated upright in bed, notes much improved since initial subutex. Skin: normal color, turgor, no icterus, cyanosis. HEENT: AT/NC, EOMI, PERRLA, mildly dry MM, evident rhinorrhea, congested/ nasally voice, no carotid bruits or JVD noted. Lungs: Diminished BS bases, inspiratory soft distant wheeze primarily CALLIE posterior lung field, moderate effort. Heart: Regular rate and rhythm; no gallop, rub audible. Abdomen: soft, NTTP, ND, normal BS, no HSM. Extremities: no cyanosis, clubbing, or edema. Neurological: patient awake, alert, oriented x 3; cognitive function intact; pupils equally reactive to light and accomodation; cranial nerves II-XII grossly normal, moving all 4 extremities, no focal deficits, strength mildly to moderately globally decreased secondary to acute presentation. Psychiatric: affect appears fatigued, no acute evidence of depressive or anxiety feelings. Assessment/Plan The patient is a 27 y/o F w/ PMHx: Asthma, Chronic Opiate Abuse (Heroine 1/2-1 gm daily snorted), Crack Cocaine (occasionally, last 09/24/17, snorted), Tobacco use (1 ppd) who presents to the [facility] at [facility] on 09/25/17 w/ noted opiate withdrawal. (1) Acute Opiate Withdrawal: Will admit to [facility], obtain routine labs including CBC , CMP, urine for drug screen, urinalysis, serum lipase, routine EKG and will initiate and continue on [facility] protocol with tapering course of Subutex, as needed Seroquel, Librium, Sinemet, Catapres, Bentyl, Vistaril, IV fluids, IV antiemetics, Tylenol as needed for pain. Once patient clinically improved and completion of taper nearing will plan [facility] assistance for transition to next level of rehabilitation care. (2) Polysubstance Abuse: Denies IVDA history; however, given polysubstance abuse will obtain HIV, hepatitis panel. Patient currently not candidate for hep C treatment currently as needs to be clean, sober x 6 months, documented attendance NA or AA meetings, counseling and ongoing negative drug screens. (3) Tobacco Abuse: Encouraged cessation, inpatient consultation per RT, NR if desired. (4) Chronic Asthma: ATC duonebs, PRN albuterol, HOB, IS parameters, continue allergy regimen. Encouraged PCP establishment and resumption of appropriate inhalers. Advised strongly tobacco cessation. (5) DVT Prophylaxis: TEDs, low risk, ambulation. Code Visit Inpatient E&M: 16684 Init Hosp L2
[2017-09-25 16:59] VITALS: BMI 26.2
[2017-09-25] MEDS: Buprenorphine HCl 2 MG TAB.SUBL SL (17:03)
[2017-09-25] MEDS: cloNIDine HCl 0.1 MG Tablet PO ×2 (17:04→20:24)
[2017-09-25] MEDS: Methocarbamol 750 MG Tablet PO (17:04)
[2017-09-25] MEDS: Dicyclomine 10 MG Capsule 20 MG PO (17:04)
[2017-09-25] MEDS: Ondansetron ODT 4 MG Tablet PO (17:04)
[2017-09-25] MEDS: hydrOXYzine PAM 25 MG Capsule 50 MG PO (17:04)
[2017-09-25] MEDS: Pramipexole Di-HCl 0.25 MG Tablet PO (17:04)
[2017-09-25 17:20] VITALS: BP 132/82; PULSE 92; RESP 18; TEMP 36.9
[2017-09-25 17:34] LABS: International Normalized Ratio 1.1; Prothrombin Time (Protime)PT. 13.7 SECONDS (11.7-14.9)
[2017-09-25 17:37] LABS: Absolute Lymphocyte Count 0.93 X10^3/ul (0.83-4.51); Absolute Neutrophil Count 5.2 X10^3/uL (2.0-7.7); Basophil# 0.04 X10^3/uL; Basophil% 0.6 % (0-1); Eosinophil# 0.23 X10^3/uL; Eosinophils% 3.4 % (0-5); Hematocrit 38.1 % (37-47); Hemoglobin 12.9 g/dl (12.0-15.0); Lymphocyte # 0.93 X10^3/ul (4.0); Lymphocyte % 13.6 % (19-41); Mean Corp Hgb Conc 33.9 g/gl (32-36); Mean Corpuscular Hgb 29.5 pg (27.0-32.0); Mean Corpuscular Volume 87.2 fL (81-99); Mean Platelet Vol. 9.9 fl (6.2-12.0); Monocyte# 0.38 X10^3/uL; Monocyte% 5.6 % (0-10); Neutrophil # 5.24 X10^3/uL (2.7-7.7); Neutrophil % 76.5 % (47-70); Platelet Count 276 K/mm3 (150-450); RBC Distribution Width CV 13.4 % (11.6-14.6); RBC Distribution Width SD 43.2 fl (35.1-43.9); Red Blood Count 4.37 M/mm3 (4.2-5.4); White Blood Count 6.8 K/mm3 (4.4-11.0)
[2017-09-25 17:47] LABS: Differential Indicated SCAN CRITERIA MET; POSITIVE COUNT YES; POSITIVE DIFFERENTIAL NO; POSITIVE MORPHOLOGY NO
[2017-09-25 17:50] LABS: Alcohol, Blood (Medical)-Serum < 3.0 mg/dL
[2017-09-25 17:51] LABS: Pregnancy, Serum, hCG Quali. NEGATIVE Negative (0-9 Nonpreg)
[2017-09-25 17:53] LABS: AST(SGOT) 11 U/L (15-37); Alanine Aminotransfer ALT/SGPT 10 U/L (13-56); Albumin, Serum 3.7 g/dL (3.2-5.0); Alkaline Phosphatase 72 U/L (45-117); Anion Gap 6 (5-15); BUN 5 mg/dL (7-18); BUN/Creat Ratio 7.3 RATIO (10-20); Calcium,Total 8.6 mg/dL (8.5-10.1); Chloride 103 mmol/L (98-107); Creatinine, Serum 0.68 mg/dL (0.55-1.02); EST Glomerular Filtration Rate 110 mL/min (>60); Est Glom Filt Rate - Afr Amer 133 mL/min (>60); Estimated Creatinine Clearance 107.31 ml/min; Globulin 3.6 g/dL (2.2-4.2); Glucose 117 mg/dL (74-106); Lipase 58 U/L (73-393); Potassium 3.7 mmol/L (3.5-5.1); Protein, Total 7.3 g/dL (6.4-8.2); Sodium Level 137 mmol/L (136-145)
[2017-09-25 18:32] LABS: HIV - WCH Non-Reactive (Nonreactive)
[2017-09-25] MEDS: chlordiazePOXIDE 25 MG Capsule PO ×2 (18:57→19:26)
[2017-09-25 20:11] LABS: Amphetamine Urine VISTA NEGATIVE (<1000 ng/mL); Barbiturate Urine VISTA NEGATIVE (< 200 ng/mL); Benzodiazepine Urine VISTA NEGATIVE (< 200 ng/mL); Cocaine Urine VISTA POSITIVE (< 300 ng/mL); Ecstacy Urine VISTA NEGATIVE (< 500 ng/mL); Methadone Urine VISTA NEGATIVE (< 300 ng/mL); PCP Urine VISTA NEGATIVE (< 25 ng/mL); THC Urine VISTA NEGATIVE (< 50 ng/mL); Vista UDS pH Range 7
[2017-09-25 20:23] VITALS: BP 124/72; PULSE 85; RESP 18; TEMP 37.2; O2SAT 95
[2017-09-25] MEDS: QUEtiapine 25 MG Tablet PO (20:26)
[2017-09-25] MEDS: traZODone 50 MG Tablet PO (21:52)
[2017-09-25] MEDS: Famotidine 20 MG Tablet PO (21:52)
[2017-09-26] VITALS (9 sets, daily range): BP systolic 86–119; BP diastolic 58–75; PULSE 74–92; RESP 16–18; TEMP 36.6–37.1; O2SAT 92–94
[2017-09-26] MEDS: Buprenorphine HCl 2 MG TAB.SUBL SL ×3 (01:33→16:44)
[2017-09-26] MEDS: cloNIDine HCl 0.1 MG Tablet PO ×4 (01:41→16:43)
[2017-09-26] MEDS: chlordiazePOXIDE 25 MG Capsule PO ×3 (01:41→16:43)
[2017-09-26] MEDS: Methocarbamol 750 MG Tablet PO ×3 (01:41→21:46)
[2017-09-26] MEDS: Multivitamins,Ther W-Minerals Tablet 1 TABLET PO (08:54)
[2017-09-26] MEDS: Thiamine Hydrochloride 100 MG Tablet PO (08:54)
[2017-09-26] MEDS: Folic Acid 1 MG Tablet PO (08:54)
--- NOTE | 2017-09-26 10:25 | PN_ITS ---
Subjective: Patient seen and examined today, she is resting quietly, she has some expiratory wheezes scattered over both lungs-patient has been refusing programmed aerosol treatments I stop them today, patient is aware that I stopped them. She still has as needed albuterol - Physical Exam General: Alert, Oriented x3, Cooperative, No apparent distress, Well developed, Well nourished HEENT: Atraumatic, PERRLA, EOMI, Normocephalic Oral: Moist Mucosa Neck: Supple, No JVD, Trachea Midline, Thyroid Normal Size and Texture Lungs: Clear to auscultation, Normal air movement, No rhonchi, No wheeze, No rales Cardiovascular: Regular rate, Regular Rhythm, Normal S1, Normal S2, No murmurs, No Ectopic Activity, PMI Normal, No rub noted, No Gallop Abdomen: Bowel Sounds Present, Soft, Non Tender, Non-Distended, No hernias noted Extremities: No edema Skin: No rashes, No breakdown Musculoskeletal: No Tenderness to Palpation of Joints or Extremities Neurological: Cranial nerves II-XII grossly intact, Neuro grossly intact, Sensory exam intact to light touch and pain, Coordination normal Psych/Mental Status: Normal Affect, Appropriate, Alert and oriented to time, place, person, mood and affect Vital Signs Temp Pulse Resp BP Pulse Ox 97.8 F 85 16 106/58 L 94 09/26/17 09:00 09/26/17 09:00 09/26/17 09:00 09/26/17 09:00 09/26/17 09:03 Oxygen Delivery Method Room Air Weight: 69.354 kg Body Mass Index (BMI) 26.2 Intake and Output for Last 24 Hours 09/24/17 09/25/17 09/26/17 23:59 23:59 23:59 Intake Total 240 / 240 240 / 240 Balance 240 / 240 240 / 240 Laboratory Tests Past 24 Hrs 09/25/17 09/25/17 09/25/17 17:00 17:00 17:00 WBC 6.8 RBC 4.37 Hgb 12.9 Hct 38.1 MCV 87.2 MCH 29.5 MCHC 33.9 RDW 13.4 RDW Differential 43.2 Plt Count 276 MPV 9.9 Immature Gran % (Auto) 0.300 Neut % (Auto) 76.5 H Lymph % (Auto) 13.6 L Dickson % (Auto) 5.6 Eos % (Auto) 3.4 Baso % (Auto) 0.6 Absolute Neuts (auto) 5.2 Absolute Lymphs (auto) 0.93 Total Counted Not Reportable Differential Comment PT INR Sodium Potassium Chloride Carbon Dioxide Anion Gap BUN Creatinine Estim Creat Clear Calc Est GFR (MDRD) Af Amer Est GFR (MDRD) Non-Af BUN/Creatinine Ratio Glucose Calcium Magnesium Total Bilirubin AST ALT Alkaline Phosphatase Total Protein Albumin Globulin Albumin/Globulin Ratio Lipase Serum , Qual Urine Opiates Screen Urine Methadone Screen Ur Barbiturates Screen Ur Phencyclidine Scrn Ur Amphetamines Screen U Methamphetamin-MDMA U Benzodiazepines Scrn Urine Cocaine Screen U Cannabinoids Screen Ur Drug Screen Comment Ethyl Alcohol Hepatitis A IgM Ab Pending Hepatitis A Ab Total Pending Hep Bs Antigen Pending Hep B Core Total Ab Pending Hep B Core IgM Ab Pending Hepatitis C Comment Pending HIV 1&2 Antibody Non-Reactive 09/25/17 09/25/17 09/25/17 17:00 17:00 17:00 WBC RBC Hgb Hct MCV MCH MCHC RDW RDW Differential Plt Count MPV Immature Gran % (Auto) Neut % (Auto) Lymph % (Auto) Dickson % (Auto) Eos % (Auto) Baso % (Auto) Absolute Neuts (auto) Absolute Lymphs (auto) Total Counted Differential Comment PT 13.7 INR 1.1 Sodium 137 Potassium 3.7 Chloride 103 Carbon Dioxide 28.0 Anion Gap 6 BUN 5 L Creatinine 0.68 Estim Creat Clear Calc 107.31 Est GFR (MDRD) Af Amer 133 Est GFR (MDRD) Non-Af 110 BUN/Creatinine Ratio 7.3 L Glucose 117 H Calcium 8.6 Magnesium 2.0 Total Bilirubin 0.30 AST 11 L ALT 10 L Alkaline Phosphatase 72 Total Protein 7.3 Albumin 3.7 Globulin 3.6 Albumin/Globulin Ratio 1.0 Lipase 58 L Serum , Qual Urine Opiates Screen Urine Methadone Screen Ur Barbiturates Screen Ur Phencyclidine Scrn Ur Amphetamines Screen U Methamphetamin-MDMA U Benzodiazepines Scrn Urine Cocaine Screen U Cannabinoids Screen Ur Drug Screen Comment Ethyl Alcohol < 3.0 Hepatitis A IgM Ab Hepatitis A Ab Total Hep Bs Antigen Hep B Core Total Ab Hep B Core IgM Ab Hepatitis C Comment HIV 1&2 Antibody 09/25/17 09/25/17 17:00 19:00 WBC RBC Hgb Hct MCV MCH MCHC RDW RDW Differential Plt Count MPV Immature Gran % (Auto) Neut % (Auto) Lymph % (Auto) Dickson % (Auto) Eos % (Auto) Baso % (Auto) Absolute Neuts (auto) Absolute Lymphs (auto) Total Counted Differential Comment PT INR Sodium Potassium Chloride Carbon Dioxide Anion Gap BUN Creatinine Estim Creat Clear Calc Est GFR (MDRD) Af Amer Est GFR (MDRD) Non-Af BUN/Creatinine Ratio Glucose Calcium Magnesium Total Bilirubin AST ALT Alkaline Phosphatase Total Protein Albumin Globulin Albumin/Globulin Ratio Lipase Serum , Qual NEGATIVE Urine Opiates Screen POSITIVE H Urine Methadone Screen NEGATIVE Ur Barbiturates Screen NEGATIVE Ur Phencyclidine Scrn NEGATIVE Ur Amphetamines Screen NEGATIVE U Methamphetamin-MDMA NEGATIVE U Benzodiazepines Scrn NEGATIVE Urine Cocaine Screen POSITIVE H U Cannabinoids Screen NEGATIVE Ur Drug Screen Comment Ethyl Alcohol Hepatitis A IgM Ab Hepatitis A Ab Total Hep Bs Antigen Hep B Core Total Ab Hep B Core IgM Ab Hepatitis C Comment HIV 1&2 Antibody Medical Necessity - Tobacco Use Smoking Status: Current every day smoker Tobacco Use: Cigarettes Assessment/Plan #1 acute opiate withdrawal-continue medications per medical stabilization protocol, patient has no complaints this examiner today of any nausea, vomiting , or muscle discomfort #2 asthma-patient is noncompliant with aerosol treatments, I do not really feel she needs to him programmed at this time, again she has as needed albuterol treatments ordered. #3 opiate addiction Code Visit Inpatient E&M: 22879 Subs Hosp L2
[2017-09-26] MEDS: Famotidine 20 MG Tablet PO ×2 (10:38→21:46)
[2017-09-26] MEDS: Montelukast 10 MG Tablet PO (10:38)
[2017-09-26] MEDS: Pramipexole Di-HCl 0.25 MG Tablet PO (14:02)
[2017-09-26] MEDS: Ondansetron ODT 4 MG Tablet PO (14:02)
[2017-09-26] MEDS: Dicyclomine 10 MG Capsule 20 MG PO (14:02)
[2017-09-26] MEDS: QUEtiapine 25 MG Tablet PO (21:46)
[2017-09-27] VITALS (8 sets, daily range): BP systolic 103–121; BP diastolic 56–65; PULSE 76–102; RESP 16–18; TEMP 36.8–37.4; O2SAT 95–96
[2017-09-27] MEDS: chlordiazePOXIDE 25 MG Capsule PO ×2 (01:29→09:15)
[2017-09-27] MEDS: Buprenorphine HCl 2 MG TAB.SUBL SL ×3 (01:29→20:28)
[2017-09-27] MEDS: Dicyclomine 10 MG Capsule 20 MG PO ×2 (05:07→12:11)
[2017-09-27] MEDS: Methocarbamol 750 MG Tablet PO ×3 (05:07→20:28)
[2017-09-27] MEDS: Pramipexole Di-HCl 0.25 MG Tablet PO (05:07)
[2017-09-27] MEDS: cloNIDine HCl 0.1 MG Tablet PO (09:15)
[2017-09-27] MEDS: Ondansetron ODT 4 MG Tablet PO (09:15)
[2017-09-27] MEDS: Multivitamins,Ther W-Minerals Tablet 1 TABLET PO (09:16)
[2017-09-27] MEDS: Thiamine Hydrochloride 100 MG Tablet PO (09:16)
[2017-09-27] MEDS: Montelukast 10 MG Tablet PO (09:16)
[2017-09-27] MEDS: Folic Acid 1 MG Tablet PO (09:16)
[2017-09-27] MEDS: Famotidine 20 MG Tablet PO ×2 (09:16→20:28)
--- NOTE | 2017-09-27 11:42 | PCM.PROGNOTE ---
Subjective: Patient was seen and examined today, she initially requested Seroquel to be giving during the day, I had a long discussion with her concerning the fact that I am not in favor of adding different classes of sedating drugs to ones that she is already taking. I told her that I was not opposed to giving her Seroquel at night for sleep, I told her she has Librium during the day for anxiety. 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 I asked her if she would be opposed to trying some Cymbalta due to the fact she does complain of anxiety symptoms. She stated that she was okay with this and I started her on Cymbalta 30 mg at lunch, hopefully hospitalist tomorrow will write her prescription for this and ultimately increase it to 60 mg daily to give her a trial of Cymbalta. She also states she has Vistaril at home that she can use for anxiety-I do not know how much she has, finally I told her that the hospitalist tomorrow might give her a prescription for some Seroquel to use at night for sleep when she is discharged. Patient still has some expiratory wheezes today, yesterday she refused aerosol treatments and I talked to her today about that and she states that usually Medrol Dosepak works the best so I have started her on Medrol Dosepak. I do not think the wheezing is bad enough today to give her aerosol treatments on a programmed basis. - Physical Exam General: Alert, Oriented x3, Cooperative, No apparent distress, Well developed, Well nourished HEENT: Atraumatic, PERRLA, EOMI, Normocephalic Oral: Moist Mucosa Neck: Supple, No JVD, No Nuchal Rigidity, Trachea Midline, Thyroid Normal Size and Texture Lungs: Normal air movement, No rhonchi, No rales, Wheezes - Scattered expiratory wheezes are noted bilaterally Cardiovascular: Regular rate, Regular Rhythm, Normal S1, Normal S2, No murmurs, No Ectopic Activity, PMI Normal, No rub noted, No Gallop Abdomen: Bowel Sounds Present, Soft, Non Tender, Non-Distended Extremities: No clubbing, No cyanosis, No edema, Capillary Refill Less than 3 Seconds Skin: No rashes, No breakdown Musculoskeletal: No Tenderness to Palpation of Joints or Extremities Neurological: Cranial nerves II-XII grossly intact, Neuro grossly intact, Muscle tone normal, Sensory exam intact to light touch and pain Psych/Mental Status: Normal Affect, Appropriate, Alert and oriented to time, place, person, mood and affect Vital Signs Temp Pulse Resp BP Pulse Ox 98.7 F 84 18 106/58 L 96 09/27/17 09:11 09/27/17 09:20 09/27/17 09:11 09/27/17 09:11 09/27/17 09:12 Oxygen Delivery Method Room Air Weight: 69.354 kg Body Mass Index (BMI) 26.2 Intake and Output for Last 24 Hours 09/25/17 09/26/17 09/27/17 23:59 23:59 23:59 Intake Total 240 / 240 240 / 240 400 / 400 Balance 240 / 240 240 / 240 400 / 400 Medical Necessity - Tobacco Use Smoking Status: Current every day smoker Tobacco Use: Cigarettes Assessment/Plan #1 acute opiate withdrawal-continue medications per medical stabilization protocol, patient has no complaints this examiner today of any nausea, vomiting, or muscle discomfort, again I have decided to place patient on Cymbalta as a mood stabilizer, she may also remain on Seroquel at bedtime for sleep. #2 asthma-patient was placed on a Medrol dose pack, this will need to be continued as an outpatient when she is discharged #3 opiate addiction #4 anxiety Code Visit Inpatient E&M: 41930 Subs Hosp L2
[2017-09-27] MEDS: MethylPREDNISolone DosePak 4 MG BOX 8 MG PO ×3 (12:11→20:27)
[2017-09-27] MEDS: DULoxetine Hcl 30 MG Capsule PO (12:12)
[2017-09-27] MEDS: chlordiazePOXIDE 25 MG Capsule 50 MG PO (16:10)
[2017-09-27] MEDS: QUEtiapine 25 MG Tablet PO (20:28)
--- NOTE | 2017-09-27 21:37 | NURSING ---
PT CAME TO THE DESK WITH FRIENDS WHO WERE VISITING AND STATES SHE IS LEAVING SHE WANTS TO SMOKE OFFERED TO GET HER GUM. PT REFUSED AND ALSO REFUSED PATCH. PRIMARY RN PRESENT AND AWARE. PT DOESNT WANT TO WAIT ON THURSDAY FOR A RIDE AFTER SHE IS DC'D. PT SIGNED AMA. SECURITY CALLED AND WILL ACCOMPANY OUT OF BUILDING. WILL NOTIFY & URSZULA NGUYEN
--- NOTE | 2017-09-27 21:50 | NURSING ---
NURSING SUPV AWARE PT LEFT AMA. SECURITY ACCOMPANIED OUT OF BUILDING
[2017-09-29 14:07] LABS: HEPATITIS B SURFACE AG Negative (Negative); Hepatitis A AB, Total Positive (Negative); Hepatitis A IgM Antibody Negative (Negative); Hepatitis B Core AB IgM Negative (Negative); Hepatitis B Core Ab Total Negative (Negative); Hepatitis C Ab <0.1 s/co ratio (0.0-0.9)
[2017-09-29 16:31] LABS: Hep B Surface Antibodies Non Reactive (.)
== END 2017-09-27 21:50 | disposition left against medical advice (07) | DRG 433 ==
PROVIDERS: Admitting Provider Family Medicine; Visit Provider Internal Medicine
DX: F11.23 Opioid dependence with withdrawal (principal); F14.929 Cocaine use, unspecified with intoxication, unspecified; F17.210 Nicotine dependence, cigarettes, uncomplicated; F41.9 Anxiety disorder, unspecified; J45.909 Unspecified asthma, uncomplicated; Z91.14 Patient's other noncompliance with medication regimen
CPT/HCPCS: 80053; 80307; 80320; 83690; 83735; 84703; 85025; 85610; 86703; 86704; 86705; 86706; 86708; 86709; 86803; 87340; 93005; 97802; G0480